=== PATIENT | female | born 1950 | race Caucasian/White ===

== ENCOUNTER 2017-02-24 08:57 | Day surgery (SDC) | payer MEDICARE, MEDICAID ==
[~2017-02-24 08:57] MED LIST: CALCIUM + MAGNESIUM; DIPH50CA3 PO; FISH OIL PO; HYDR-568 PO; IRBE150T51 PO; METF1000 PO; SIMV20TA5 PO; TRIA1CAP6 PO
[2017-02-24] MEDS ORDERED: fentaNYL/PF 50MCG/1 ML 2ML syringe ONE (09:04)
[2017-02-24] MEDS ORDERED: MIDAZolam 1mg/ml 10ml vial ONE (09:04)
[2017-02-24] MEDS ORDERED: LIDOcaine Viscous 15ml cup ONE (09:04)
[2017-02-24 09:47] VITALS: BP 105/55
[2017-02-24 11:45] VITALS: BP 156/60
[2017-02-24 11:55] VITALS: BP 144/70
[2017-02-24 12:05] VITALS: BP 154/66
== END 2017-02-24 12:45 | disposition home or self-care (01) ==
LOC: GI LAB 08:57
PROVIDERS: ATTEND Internal Medicine Gastroenterology
DX: K31.811 Angiodysplasia of stomach and duodenum with bleeding (principal)
CPT/HCPCS: 43255; 99153; G0500; J2250; J3010; J7030; A4620

== ENCOUNTER 2017-10-14 07:41 | Day surgery (SDC) | payer MEDICARE, MEDICAID ==
[~2017-10-14] VITALS: Ht 160 cm; Wt 65.9 kg
[2017-10-14] MEDS ORDERED: fentaNYL/PF 50MCG/1 ML 2ML syringe ONE (07:48)
[2017-10-14] MEDS ORDERED: LIDOcaine Viscous 15ml cup ONE (07:48)
[2017-10-14] MEDS ORDERED: MIDAZolam 5mg/5ml vial ONE (07:48)
[2017-10-14 07:55] VITALS: BP 134/73
[2017-10-14] MEDS ORDERED: OMEP20CA10 PO (08:04)
[2017-10-14] MEDS ORDERED: DIPH50CA3 PO (08:05)
[2017-10-14 09:35] VITALS: BP 141/55
[2017-10-14 09:45] VITALS: BP 135/59
[2017-10-14 09:55] VITALS: BP 138/63
[2017-10-14 10:05] VITALS: BP 137/54
== END 2017-10-14 10:15 | disposition home or self-care (01) ==
LOC: GI LAB 07:41
PROVIDERS: ATTEND Internal Medicine Gastroenterology
DX: K31.811 Angiodysplasia of stomach and duodenum with bleeding (principal); Q27.33 Arteriovenous malformation of digestive system vessel; I10 Essential (primary) hypertension; J44.9 Chronic obstructive pulmonary disease, unspecified; E11.9 Type 2 diabetes mellitus without complications; F41.8 Other specified anxiety disorders; Z87.891 Personal history of nicotine dependence; Z90.710 Acquired absence of both cervix and uterus; Z96.652 Presence of left artificial knee joint; Z88.0 Allergy status to penicillin; Z79.84 Long term (current) use of oral hypoglycemic drugs; Z79.891 Long term (current) use of opiate analgesic; Z86.73 Personal history of transient ischemic attack (TIA), and cerebral infarction without residual deficits; Z98.890 Other specified postprocedural states; Z79.899 Other long term (current) drug therapy
CPT/HCPCS: 43255; 99153; G0500; J2250; J3010; J7030; A4620

== ENCOUNTER 2017-12-18 12:22 | Day surgery (SDC) | payer MEDICARE, MEDICAID ==
[~2017-12-18] VITALS: Ht 161.3 cm; Wt 66.4 kg
[~2017-12-18 12:22] MED LIST changes: +HYDR-4384 PO; -HYDR-568 PO; +OMEP20CA10 PO
[2017-12-18 12:34] VITALS: BP 145/78
[2017-12-18] MEDS ORDERED: MIDAZolam 5mg/5ml vial ONE (12:36)
[2017-12-18] MEDS ORDERED: fentaNYL/PF 50MCG/1 ML 2ML syringe ONE (12:36)
[2017-12-18] MEDS ORDERED: LIDOcaine Viscous 15ml cup ONE (12:37)
[2017-12-18 14:20] VITALS: BP 154/74
[2017-12-18 14:30] VITALS: BP 153/68
[2017-12-18 14:40] VITALS: BP 146/74
[2017-12-18 14:50] VITALS: BP 143/76
== END 2017-12-18 15:10 | disposition home or self-care (01) ==
LOC: GI LAB 12:22
PROVIDERS: ATTEND Internal Medicine Gastroenterology
DX: K31.819 Angiodysplasia of stomach and duodenum without bleeding (principal); I10 Essential (primary) hypertension; J44.9 Chronic obstructive pulmonary disease, unspecified; E11.9 Type 2 diabetes mellitus without complications; F41.8 Other specified anxiety disorders; Z88.0 Allergy status to penicillin; Z87.891 Personal history of nicotine dependence; Z90.710 Acquired absence of both cervix and uterus; Z96.652 Presence of left artificial knee joint; Z79.891 Long term (current) use of opiate analgesic; Z86.73 Personal history of transient ischemic attack (TIA), and cerebral infarction without residual deficits; Z79.84 Long term (current) use of oral hypoglycemic drugs; Z86.69 Personal history of other diseases of the nervous system and sense organs; Z79.899 Other long term (current) drug therapy; Z98.890 Other specified postprocedural states
CPT/HCPCS: 43255; G0500; J2250; J3010; J7030; 99152; 99153; A4620